=== PATIENT | female | born 1985 | race Caucasian/White ===

== ENCOUNTER 2017-11-04 11:42 | Day surgery (SDC) | payer OTHER ==
[2017-11-02 16:20] LABS: ALBUMIN 4.3 G/DL (3.4-5.0); ALBUMIN/GLOBULIN RATIO 1.1 (1.1-1.5); ALKALINE PHOSPHATASE 49 IU/L (46-116); BLOOD UREA NITROGEN 13 MG/DL (7-18); BUN/CREATININE RATIO 15.1 (6.6-38.0); CHLORIDE 103 MMOL/L (99-107); CREATININE 0.86 MG/DL (0.40-0.90); PRE OP ALT 19 U/L (30-65); PRE OP ANION GAP 10 (8-16); PRE OP AST 14 U/L (10-37); PRE OP BILIRUB, TOTAL 0.2 MG/DL (0.0-1.0); PRE OP GLUCOSE 92 MG/DL (70-104); PRE OP POTASSIUM 3.5 MMOL/L (3.4-5.1); PRE OP SODIUM 140 MMOL/L (135-145); TOTAL CARBON DIOXIDE 27.2 MMOL/L (24-32); TOTAL PROTEIN 8.1 G/DL (6.4-8.2); eGFR 77 ML/MIN
[2017-11-02 16:21] LABS: BASOPHILS # (AUTO) 0.1 X10'3 (0-0.2); BASOPHILS % (AUTO) 0.7 % (0-1); EOSINOPHILS # (AUTO) 0.1 X10'3 (0-0.9); EOSINOPHILS % (AUTO) 1.4 % (0-6); LYMPHOCYTES % (AUTO) 32.5 % (21-51); MEAN CORPUSCULAR HEMOGLOBIN 26.7 PG (27.0-31.0); MEAN CORPUSCULAR VOLUME 78.7 FL (78-98); MEAN PLATELET VOLUME 8.5 FL (7.4-10.4); MONOCYTES # (AUTO) 0.5 X10'3 (0-0.9); MONOCYTES % (AUTO) 5.9 % (2-12); NEUTROPHILS # (AUTO) 5.4 X10'3 (1.8-7.7); NEUTROPHILS % (AUTO) 59.5 % (42-75); PRE OP HEMATOCRIT 34.9 % (35.0-45.0); PRE OP HEMOGLOBIN 11.8 g/dL (12.0-16.0); PRE OP PLATELET COUNT 386 X10'3 (140-440); RED BLOOD COUNT 4.43 X10'6 (4.20-5.60)
[2017-11-02 16:25] LABS: HCG SERUM QL NEGATIVE
[2017-11-02 16:32] LABS: CLARITY,URINE CLEAR (Clear); COLOR,URINE YELLOW (Yellow); GLUCOSE, URINE NEGATIVE (Neg); KETONES,URINE NEGATIVE (Neg); LEUKOCYTE ESTERASE ,URINE NEGATIVE (Neg); NITRITES, URINE NEGATIVE (Neg); OCCULT BLOOD,URINE TRACE-INTACT (Neg); PH,URINE 6.5 (4.8-8.0); PROTEIN,URINE NEGATIVE (Neg); UROBILINOGEN,URINE 0.2 E.U/dL (0.2-1.0)
[2017-11-02 16:34] LABS: UA COLLECTION TYPE CLN CATCH MIDSTREAM
[2017-11-02 16:35] LABS: BACTERIA,URINE NONE SEEN /HPF (Neg); RBC,URINE 0-2 /HPF (0-2); SQUAMOUS EPITHELIAL CELL,UR NONE SEEN /LPF (FEW); WBC,URINE 0-4 /HPF (0-4)
[~2017-11-04] VITALS: Ht 157.5 cm; Wt 68.0 kg
[2017-11-04] VITALS (7 sets, daily range): BP systolic 108–133; BP diastolic 63–76
[~2017-11-04 11:42] MED LIST: ACET-2615 PO; GABA-532 PO; MELO-102 PO; ceFOXitin inj 1,000 MG in normal saline 100ml IV soln 100 ML IV ONE; famotidine 20mg tablet PO ONE; ringers solution, lacted 1,000 ML IV SCH
[2017-11-04] MEDS ORDERED: propofol inj 20 ML IV ONE (14:22)
[2017-11-04] MEDS ORDERED: fentaNYL /PF 50mcg/ml 5ml ampule ONE (14:22)
[2017-11-04] MEDS ORDERED: midazolam 2 mg/2 ml injection ONE (14:23)
[2017-11-04] MEDS ORDERED: ringers solution, lacted 1,000 ML IV SCH (15:57)
[2017-11-04] MEDS ORDERED: acetaminophen 1,000mg/100ml IV 100 ML IV PRN (16:00)
[2017-11-04] MEDS ORDERED: ondansetron/PF 4mg/2ml inj IV PRN (16:00)
[2017-11-04] MEDS ORDERED: meperidine/PF 50mg/ml syringe IV PRN ×2 (16:00)
[2017-11-04] MEDS ORDERED: proCHLORperazine 10 MG/2 ml inj IV PRN (16:00)
[2017-11-04] MEDS ORDERED: dexamethasone sod phosphate 4mg/ml inj. ONE (16:01)
[2017-11-04] MEDS ORDERED: ondansetron/PF 4mg/2ml inj ONE (16:02)
[2017-11-04] MEDS ORDERED: metoclopramide 5 mg/ml inj ONE (16:03)
[2017-11-04] MEDS ORDERED: ketorolac trometh. 30mg/ml inj. ONE (16:19)
[2017-11-04] MEDS: fentaNYL/PF 50MCG/1 ML 2ML syringe IV PRN ×2 (16:36→16:50)
== END 2017-11-04 17:20 | disposition home or self-care (01) ==
LOC: PAS 11:42
PROVIDERS: ATTEND Obstetrics & Gynecology Obstetrics
DX: N93.8 Other specified abnormal uterine and vaginal bleeding (principal); N84.0 Polyp of corpus uteri; Z79.899 Other long term (current) drug therapy; D64.89 Other specified anemias; Z87.891 Personal history of nicotine dependence
CPT/HCPCS: 36415; 58558; 80053; 81001; 84703; 85025; 86885; 86900; 86901; A4355; J0131; J0694; J1100; J1885; J2250; J2405; J2704; J2765; J3010; J7030; J7120; A7000